=== PATIENT | male | born 1990 | race Two or more races ===

== ENCOUNTER → 2020-10-01 | Emergency (ER) | payer OTHER ==
[~2020-10-01] VITALS: Ht 167.6 cm; Wt 84.4 kg
== END | disposition home or self-care (01) ==
LOC: ER 15:32
DX: S91.341A Puncture wound with foreign body, right foot, initial encounter (principal); T63.691A Toxic effect of contact with other venomous marine animals, accidental (unintentional), initial encounter; Y92.832 Beach as the place of occurrence of the external cause; Y93.89 Activity, other specified; Y99.8 Other external cause status